=== PATIENT | male | born 1975 | race Caucasian/White ===

== ENCOUNTER 2018-04-07 03:18 | Inpatient (IN) | payer MEDICAID ==
[2018-04-07] MEDS: DIAZEPAM 5 MG TAB PO (03:55)
[2018-04-07] MEDS: LACTATED RINGER'S 1,000 ML IV ×2 (04:10→07:56)
[2018-04-07] MEDS: ONDANSETRON 4 MG INJ IV ×3 (04:11→21:38)
[2018-04-07] MEDS: SOD CHLORIDE 0.9% 1,000 ML IV (04:11)
[2018-04-07 04:18] LABS: ADD MAN DIFF? NO
[2018-04-07 04:24] LABS: ABNORMAL IP MESSAGE 1; BASOPHIL # 0.1 10^3/ul (0.0-0.1); BASOPHILS % 0.7 % (0.0-2.0); HEMATOCRIT 44.5 % (42.0-52.0); HEMOGLOBIN 15.9 g/dl (14.0-18.0); LYMPHOCYTES # 2.1 10^3/ul (0.8-2.9); LYMPHOCYTES % 28.5 % (15.0-51.0); MEAN CORPUSCULAR HEMOGLOBIN 29.7 pg (29.0-33.0); MEAN CORPUSCULAR HGB CONC 35.7 g/dl (32.0-37.0); MEAN PLATELET VOLUME 11.1 fl (7.4-10.4); MONOCYTE # 0.5 10^3/ul (0.3-0.9); MONOCYTES % 6.4 % (0.0-11.0); NEUTROPHIL # 4.8 10^3/ul (1.6-7.5); PLATELET COUNT 68 10^3/UL (140-415); POSITIVE DIFF @See below; RED BLOOD COUNT 5.36 10^6/ul (4.70-6.10); RED CELL DISTRIBUTION WIDTH 13.2 % (11.5-14.5)
[2018-04-07 04:24] LABS: WHITE BLOOD COUNT 7.5 10^3/ul (4.8-10.8)
[2018-04-07 04:39] LABS: ALANINE AMINOTRANSFERASE 538 IU/L (13-69); ALBUMIN 3.5 g/dl (3.3-4.9); ALBUMIN/GLOBULIN RATIO 0.92; ALKALINE PHOSPHATASE 173 IU/L (42-121); ANION GAP 20 (8-16); BILIRUBIN,INDIRECT 1.1 mg/dl (0-1.1); BILIRUBIN,TOTAL 1.1 mg/dl (0.2-1.3); BLOOD UREA NITROGEN 19 mg/dl (7-20); CALCIUM 7.7 mg/dl (8.4-10.2); CARBON DIOXIDE 23 mmol/L (21-31); CHLORIDE 94 mmol/L (97-110); CREATININE 0.69 mg/dl (0.61-1.24); GLUCOSE 203 mg/dl (70-220); LIPASE 241 U/L (23-300); POTASSIUM 4.1 mmol/L (3.5-5.1); SODIUM 133 mmol/L (135-144); TOTAL PROTEIN 7.3 g/dl (6.1-8.1)
[2018-04-07 04:51] LABS: TROPONIN-I < 0.012 ng/ml (0.000-0.120)
[2018-04-07 04:53] LABS: LACTIC ACID 6.7 mmol/L (0.5-2.0)
[2018-04-07 05:12] LABS: ASPARTATE AMINO TRANSFERASE 1303 IU/L (15-46)
[2018-04-07] MEDS: KETOROLAC 30 MG INJ IV (05:29)
[2018-04-07] MEDS: DIPHENHYDRAMINE 50 MG INJ IV (07:57)
[2018-04-07] MEDS: LORAZEPAM 2 MG INJ IV ×3 (07:57→21:21)
[2018-04-07] MEDS: METOCLOPRAMIDE 10 MG INJ IV (07:58)
[2018-04-07] MEDS: ACETAMINOPHEN 325 MG TAB PO (08:02)
[2018-04-07] MEDS ORDERED: GLUCOSE GEL 15 GRAM TUBE PO ×2 (09:30)
[2018-04-07] MEDS ORDERED: GLUCAGON 1 MG INJ IM (09:30)
[2018-04-07] MEDS ORDERED: NACL 0.9% 3 ML SYG IV (09:30)
[2018-04-07] MEDS ORDERED: GLUCOSE GEL 15 GRAM TUBE BUCCAL (09:30)
[2018-04-07] MEDS ORDERED: DEXTROSE 50% 50 ML SYRINGE IV ×2 (09:30)
[2018-04-07] MEDS ORDERED: TRIMETHOBENZAMIDE 100 MG/ML VIAL IM (09:30)
[2018-04-07 10:02] LABS: HAAIG REFLEX REFLEX FILED
[2018-04-07 10:24] LABS: AMMONIA < 9 umol/l (9-30)
[2018-04-07 10:26] LABS: LACTIC ACID 5.6 mmol/L (0.5-2.0)
[2018-04-07] MEDS: SOD CHLORIDE 0.45% 1,000 ML IV ×2 (10:50→15:14)
[2018-04-07 11:03] LABS: HEPATITIS B SURFACE ANTIGEN NEGATIVE (NEGATIVE)
[2018-04-07 11:21] LABS: ADD UMIC YES; HEPATITIS B CORE ANTIBODY NEGATIVE (NEGATIVE); HEPATITIS C VIRAL ANTIBODY NEGATIVE (NEGATIVE); UR ASCORBIC ACID NEGATIVE (NEGATIVE); UR BACTERIA FEW /HPF (NONE SEEN); UR BILIRUBIN (Dip) NEGATIVE (NEGATIVE); UR BLOOD (Dip) 2+ mg/dL (NEGATIVE); UR CLARITY CLEAR (CLEAR); UR COLOR YELLOW (YELLOW); UR GLUCOSE (Dip) NEGATIVE (NEGATIVE); UR KETONES (Dip) NEGATIVE (NEGATIVE); UR LEUKOCYTE ESTERASE (Dip) NEGATIVE Leu/ul (NEGATIVE); UR NITRITE (Dip) NEGATIVE (NEGATIVE); UR RBC 5 /HPF (0-5); UR SPECIFIC GRAVITY (Dip) 1.021 (1.003-1.030); UR TOTAL PROTEIN (Dip) NEGATIVE (NEGATIVE); UR UROBILINOGEN (Dip) NEGATIVE (NEGATIVE); UR WBC 12 /HPF (0-5)
[2018-04-07] MEDS: INSULIN ASPART [NOVOLOG] 3 ML PEN SC ×3 (11:45→21:00)
[2018-04-07] MEDS: CHLORDIAZEPOXIDE 25 MG CAP PO ×2 (12:12→17:20)
[2018-04-07] MEDS: PIPER-TAZO 3.375 GM IV (PMX) 50 ML IVPB ×2 (12:12→13:44)
[2018-04-07] MEDS: SPIRONOLACTONE 50 MG TAB PO (12:20)
[2018-04-07] MEDS: FUROSEMIDE 40 MG TAB PO (12:21)
[2018-04-07] MEDS: MULTIVITAMINS 10 ML, THIAMINE 100 MG, FOLIC ACID 1 MG in SOD CHLORIDE 0.9% 1,000 ML IVPB (14:54)
[2018-04-07 16:07] LABS: PLATELET COUNT 38 10^3/UL (140-415)
[2018-04-07 16:18] LABS: INR 1.12; PROTIME 14.6 Sec (11.9-14.9); PT RATIO 1.1
[2018-04-07 16:19] LABS: PARTIAL THROMBOPLASTIN TIME 26.5 Sec (25.0-35.0)
[2018-04-07 16:23] LABS: THROMBIN TIME 17.9 SEC (13.8-19.1)
[2018-04-07] MEDS: traMADol 50 MG TAB PO (17:05)
[2018-04-07] MEDS: PIPER-TAZO 3.375 GM IV (PMX) 100 ML IVPB (17:15)
[2018-04-07] MEDS: FAMOTIDINE 20 MG TAB PO (21:20)
[2018-04-08] MEDS: SOD CHLORIDE 0.9% 1,000 ML IV ×2 (00:01→07:24)
[2018-04-08] MEDS: CHLORDIAZEPOXIDE 25 MG CAP PO ×3 (00:01→11:58)
[2018-04-08] MEDS: PIPER-TAZO 3.375 GM IV (PMX) 100 ML IVPB ×3 (00:01→11:49)
[2018-04-08] MEDS: NICOTINE (21 MG/24 HR) PATCH TRANSDERM ×2 (00:49→08:24)
[2018-04-08] MEDS: ACCU-CHEK XX (01:45)
[2018-04-08] MEDS: LORAZEPAM 2 MG INJ IV (05:23)
[2018-04-08 06:45] LABS: ABNORMAL IP MESSAGE 1; HEMATOCRIT 39.6 % (42.0-52.0); HEMOGLOBIN 13.6 g/dl (14.0-18.0); MEAN CORPUSCULAR HEMOGLOBIN 29.8 pg (29.0-33.0); MEAN CORPUSCULAR HGB CONC 34.3 g/dl (32.0-37.0); MEAN CORPUSCULAR VOLUME 86.7 fl (82.0-101.0); MEAN PLATELET VOLUME 11.1 fl (7.4-10.4); POSITIVE DIFF @See below; RED BLOOD COUNT 4.57 10^6/ul (4.70-6.10); RED CELL DISTRIBUTION WIDTH 13.9 % (11.5-14.5)
[2018-04-08 06:54] LABS: ADD MAN DIFF? YES; PLATELET COUNT 28 10^3/UL (140-415)
[2018-04-08 07:05] LABS: ALANINE AMINOTRANSFERASE 512 IU/L (13-69); ALBUMIN 3.4 g/dl (3.3-4.9); ALBUMIN/GLOBULIN RATIO 1.13; ALKALINE PHOSPHATASE 133 IU/L (42-121); ANION GAP 15 (8-16); BILIRUBIN,INDIRECT 3.3 mg/dl (0-1.1); BILIRUBIN,TOTAL 3.6 mg/dl (0.2-1.3); BLOOD UREA NITROGEN 18 mg/dl (7-20); CALCIUM 7.4 mg/dl (8.4-10.2); CARBON DIOXIDE 32 mmol/L (21-31); CHLORIDE 92 mmol/L (97-110); CHOL/HDL RATIO 3.2 RATIO; CHOLESTEROL 120 mg/dl (100-200); CREATININE 0.72 mg/dl (0.61-1.24); GLUCOSE 152 mg/dl (70-220); HDL CHOLESTEROL 37 mg/dl (27-67); LDL CHOLESTEROL,CALCULATED 44 mg/dl; PHOSPHORUS 2.7 mg/dl (2.5-4.9); POTASSIUM 3.3 mmol/L (3.5-5.1); SODIUM 136 mmol/L (135-144); TOTAL PROTEIN 6.4 g/dl (6.1-8.1); TRIGLYCERIDES 193 mg/dl (0-149)
[2018-04-08 07:12] LABS: ASPARTATE AMINO TRANSFERASE 926 IU/L (15-46)
[2018-04-08 07:34] LABS: HEMOGLOBIN A1C 9.6 % (0-5.9)
[2018-04-08] MEDS: FAMOTIDINE 20 MG TAB PO (08:21)
[2018-04-08] MEDS: SPIRONOLACTONE 50 MG TAB PO (08:22)
[2018-04-08] MEDS: FUROSEMIDE 40 MG TAB PO (08:51)
[2018-04-08] MEDS: MAGNESIUM SULFATE 2 GM/50 ML 50 ML IVPB ×3 (08:52→13:33)
[2018-04-08] MEDS: INSULIN ASPART [NOVOLOG] 3 ML PEN SC ×2 (08:57→12:34)
[2018-04-08] MEDS ORDERED: NICOTINE (21 MG/24 HR) PATCH TRANSDERM (09:00)
[2018-04-08] MEDS: MULTIVITAMINS 10 ML, THIAMINE 100 MG, FOLIC ACID 1 MG in SOD CHLORIDE 0.9% 1,000 ML IVPB (10:31)
[2018-04-08] MEDS ORDERED: SOD CHLORIDE 0.9% 250 ML IV* (10:46)
[2018-04-08 11:08] LABS: BASOPHILS % (M) 2 % (0-2); EOSINOPHILS % (M) 2 % (0-7); LYMPHOCYTES #M 1.3 10^3/ul (0.8-2.9); LYMPHOCYTES % (M) 34 % (15-51); MONOCYTE #M 0.1 10^3/ul (0.3-0.9); MONOCYTES % (M) 3 % (0-11); PLATELET ESTIMATE SIG DECREASED; SEGMENTED NEUTROPHILS (M) % 59 % (39-77); SMUDGE%M 7 % (0-0)
[2018-04-08] MEDS: POTASSIUM CHLORIDE (SR) 20 MEQ TAB PO (11:56)
[2018-04-08 16:16] LABS: FREE T4 (FREE THYROXINE) 1.48 ng/dl (0.64-1.79)
== END 2018-04-08 15:15 | disposition left against medical advice (07) | DRG 433 ==
LOC: E/R 03:18 → MS3 06:09 → TEL 18:28
PROVIDERS: Internal Medicine
DX: K70.40 Alcoholic hepatic failure without coma (principal); F10.239 Alcohol dependence with withdrawal, unspecified; E87.1 Hypo-osmolality and hyponatremia; E87.2 Acidosis; D69.59 Other secondary thrombocytopenia; R16.1 Splenomegaly, not elsewhere classified; F17.200 Nicotine dependence, unspecified, uncomplicated; K70.31 Alcoholic cirrhosis of liver with ascites; K70.9 Alcoholic liver disease, unspecified; R00.0 Tachycardia, unspecified; Z85.72 Personal history of non-Hodgkin lymphomas
CPT/HCPCS: 36415; 74176; 76705; 80053; 80061; 80307; 81001; 82140; 82962; 83036; 83605; 83690; 83735; 84100; 84439; 84443; 84484; 85025; 85049; 85610; 85670; 85730; 86704; 86709; 86803; 86850; 86900; 86901; 87040; 87086; 87340; 93005; 93306; 96361; 96374; 96375; 99285-25